=== PATIENT | male | born 1985 | race Two or more races ===

== ENCOUNTER 2019-11-23 20:10 | Emergency (ER) | payer SELFPAY ==
[~2019-11-23] VITALS: Ht 180.3 cm; Wt 65.9 kg
[2019-11-23 20:14] VITALS: BP 132/83
--- NOTE | 2019-11-23 21:03 | NUR ---
discharge paperwork given to patient with verbal understanding
== END 2019-11-23 21:08 | disposition home or self-care (01) ==
LOC: ED 21:02
DX: K02.9 Dental caries, unspecified (principal); K08.89 Other specified disorders of teeth and supporting structures
CPT/HCPCS: 99283